=== PATIENT | female | born 1945 | race Caucasian/White ===

== ENCOUNTER 2017-07-27 09:48 | Emergency (ER) | payer MEDICARE, BC ==
[~2017-07-27] VITALS: Ht 157.5 cm; Wt 46.4 kg
[~2017-07-27 09:48] MED LIST: ALAVERT10 M1 PO; ASPIRIN E.C. 8181 MG PO; CALCIUM 600/VIT1 CAP PO; CELEXA; CELEXA10 MG PO; CELEXA40 MG PO; COZAAR100 MG; COZAAR100 MG PO; CRESTOR; LEVOTHROID0.125 MG PO; LEVOXYL0.125 MG PO; LIPITOR 10MG10 MG PO; MULTIPLE VITAMI1 TAB PO; MVI; NORCO 325 MG-51 TAB PO; PROLIA60 MG/ML SC; SYNTHROID0.075 MG/T PO; SYNTHROID0.088 MG/T PO; THEO-DUR 2200 MG/TAB PO; TUDORZA IH; [UNRECOGNIZED DRUG - OTHER] PO; cholesterol med
[2017-07-27 09:54] VITALS: TEMP 98
[2017-07-27 10:14] LABS: COLLECTION METHOD CLEAN CATCH
[2017-07-27 10:26] LABS: MUCOUS Present /lpf; PH 5 (5-8); URINE APPEARANCE Cloudy; URINE BACTERIA Rare /hpf; URINE BILIRUBIN Negative (NEGATIVE); URINE BLOOD 2+ (NEGATIVE); URINE COLOR Yellow; URINE GLUCOSE Negative (NEGATIVE); URINE KETONE Negative (NEGATIVE); URINE LEUKOCYTE ESTERASE 3+ (NEGATIVE); URINE NITRATE Positive (NEGATIVE); URINE PROTEIN(semi-quant) Negative (NEGATIVE); URINE RBC 20-50 /hpf
[2017-07-27 10:47] LABS: BASO % 0.4 % (0.0-2.0); EOS # 0.1 (0.0-0.7); EOS % 1.4 % (0-4.0); GRAN % 69.2 % (42.2-75.2); HEMATOCRIT 42.5 % (37.0-47.0); HEMOGLOBIN 14.5 g/dl (12.5-16.0); LYMPH # 1.7 (1.2-3.4); LYMPH % 23.4 % (20.0-51.0); MEAN CELL VOLUME 90 fl (80.0-100.0); MEAN CORPUSCULAR HEMOGLOBIN 31 pg (27.0-31.0); MEAN CORPUSCULAR HGB CONC 34 g/dl (33.0-37.0); MEAN PLATELET VOLUME 9.6 fl (7.4-10.4); MONO # 0.4 (0.1-0.6); MONO % 5.3 % (1.7-9.3); PLATELET COUNT 249 K/mm3 (130-400); RED BLOOD COUNT 4.72 M/mm3 (4.10-5.30); REDCELL DISTRIBUTION WIDTH-CV 15.4 % (11.5-14.5)
[2017-07-27 10:54] LABS: ALANINE AMINOTRANSFERASE 20 U/L (9-52); ALBUMIN 3.7 gm/dL (3.5-5.0); ALKALINE PHOSPHATASE 53 U/L (50-136); ANION GAP 10 mmol/L (7-16); AST,SGOT 25 U/L (15-37); BILIRUBIN,TOTAL 0.4 mg/dL (0.0-1.0); BLOOD UREA NITROGEN 15 mg/dL (7-17); CALCIUM 9.4 mg/dL (8.4-10.2); CARBON DIOXIDE 24 mmol/L (22-30); CHLORIDE 107 mmol/L (98-107); CREATININE, serum 1.17 mg/dL (0.52-1.25); GLUCOSE 116 mg/dL (74-106); POTASSIUM 3.9 mmol/L (3.4-5.0); SODIUM 141 mmol/L (137-145)
[2017-07-27 10:55] LABS: C-REACTIVE PROTEIN < 0.5 mg/dL (0.0-0.9)
[2017-07-27] MEDS ORDERED: CEFTIN500 MG PO (11:49)
[2017-07-27] MEDS ORDERED: PROMETHAZINE12.5 M5 PO (11:49)
[2017-07-27] MEDS ORDERED: ANTIVERT 25MG25 MG PO (11:49)
[2017-07-27 12:27] VITALS: BP 134/89; PULSE 67
== END 2017-07-27 12:54 | disposition home or self-care (01) ==
LOC: COL.ER 09:48
PROVIDERS: Emergency Medicine
DX: N39.0 Urinary tract infection, site not specified (principal); I10 Essential (primary) hypertension; J44.9 Chronic obstructive pulmonary disease, unspecified; F17.210 Nicotine dependence, cigarettes, uncomplicated; Z90.49 Acquired absence of other specified parts of digestive tract; Z90.89 Acquired absence of other organs; Z79.82 Long term (current) use of aspirin
CPT/HCPCS: J2550; J7030